=== PATIENT | female | born 1985 ===

== ENCOUNTER 2017-08-20 16:55 | Emergency (ER) | payer OTHER, SELFPAY ==
--- NOTE | 2017-08-20 18:35 | EDM.PDOC ---
ED HPI GENERAL MEDICAL PROBLEM - General Chief Complaint: ROBOTIC TECHNICIAN Problem Stated Complaint: ABDOMINAL PAIN 17 WEEKS Time Seen by Provider: 08/20/17 18:05 Source of Information: Reports: Patient History Limitations: Reports: Language Barrier - History of Present Illness INITIAL COMMENTS - FREE TEXT/NARRATIVE: 32-year-old male presents for evaluation and treatment of abdominal pain. Patient reports that she is expansive abdominal pain throughout her entire abdomen. Started 2 days ago. She reports associated symptoms of nausea, vomiting and chills. Patient denies any vaginal bleeding. No known fevers. No diarrhea. Patient is a 001. Last menstrual period was May 03, approximately 17 weeks . She has been seeing Dr. Alberto ROBOTIC TECHNICIAN for her care. She did see him recently. Patient did not take anything for symptom relief prior to arrival in the ER. Past surgical history includes an appendectomy. Patient primarily speaks Stateless. language barrier is present. Duration: Day(s): (2) Abdomen Pain Score (Numeric/FACES): 7 - Related Data Allergies Allergy/AdvReac Type Severity Reaction Status Date / Time No Known Allergies Allergy Verified 08/20/17 17:39 Home Meds: Home Meds Cephalexin 500 mg PO BID #14 tablet 08/20/17 [Rx] Ondansetron [Zofran ODT] 4 mg PO Q8H PRN #12 tab.dis 08/20/17 [Rx] Pnv No.95/Ferrous Fum/Folic AC [ Multivitamin Tablet] 1 tab PO DAILY [History] Past Medical History ROBOTIC TECHNICIAN History: Reports: - Past Surgical History GI Surgical History: Reports: Appendectomy Social & Family History - Tobacco Use Smoking Status *Q: Never Smoker - Caffeine Use Caffeine Use: Reports: None - Recreational Drug Use Recreational Drug Use: No ED ROS GENERAL - Review of Systems Review Of Systems: See Below Constitutional: Reports: Chills. Denies: Fever GI/Abdominal: Reports: Abdominal Pain, Nausea, Vomiting. Denies: Diarrhea : Reports: Other (no vaginal bleeding). Denies: Dysuria ED EXAM - Physical Exam Exam: See Below Exam Limited By: No Limitations General Appearance: Alert, WD/WN, Mild Distress Eye Exam: Bilateral Eye: EOMI, Normal Inspection, PERRL Ears: Normal External Exam, Normal Canal, Normal TMs Nose: Normal Inspection Throat/Mouth: Normal Inspection, Normal Lips, Normal Oropharynx, Normal Voice, No Airway Compromise Neck: Normal Inspection Respiratory/Chest: No Respiratory Distress, Lungs Clear, Normal Breath Sounds Cardiovascular: Normal Peripheral Pulses, Regular Rate, Rhythm, No Murmur GI/Abdominal Exam: Normal Bowel Sounds, Soft, Non-Tender, Tender (gravid uterus , approximately 17 weeks, heart tones 140s) Heart Tones: Present Heart Tones per Min: 145 Neurological: Alert, Oriented, Normal Cognition Psychiatric: Normal Affect, Normal Mood Skin Exam: Warm, Dry, Normal Color Course - Vital Signs Last Recorded V/S: Last Vital Signs Temp 36.1 C 08/20/17 17:33 Pulse 68 08/20/17 17:33 Resp 20 08/20/17 17:33 BP 111/65 08/20/17 17:33 Pulse Ox 100 08/20/17 17:33 - Orders/Labs/Meds Labs: Laboratory Tests 08/20/17 08/20/17 08/20/17 Range/Units 18:50 18:50 18:54 WBC 6.88 (3.98-10.04) K/mm3 RBC 4.12 (3.98-5.22) M/mm3 Hgb 12.0 (11.2-15.7) gm/L Hct 34.4 (34.1-44.9) % MCV 83.5 (79.4-94.8) fl MCH 29.1 (25.6-32.2) pg MCHC 34.9 (32.2-35.5) g/dl RDW Std Deviation 41.0 (36.4-46.3) fL Plt Count 230 (182-369) K/mm3 MPV 9.8 (9.4-12.3) fl Neutrophils % (Manual) 61 H (40-60) % Band Neutrophils % 2 (0-10) % Lymphocytes % (Manual) 29 (20-40) % Atypical Lymphs % 0 % Monocytes % (Manual) 7 (2-10) % Eosinophils % (Manual) 1 (0.7-5.8) % Basophils % (Manual) 0 L (0.1-1.2) Platelet Estimate Adequate RBC Morph Comment Normal Sodium 139 (136-145) mEq/L Potassium 3.7 (3.5-5.1) mEq/L Chloride 104 (98-107) mEq/L Carbon Dioxide 23 (21-32) mEq/L Anion Gap 15.7 H (5-15) BUN 6 L (7-18) mg/dL Creatinine 0.5 L (0.55-1.02) mg/dL Est Cr Clr Drug Dosing 126.64 mL/min Estimated GFR (MDRD) > 60 (>60) mL/min BUN/Creatinine Ratio 12.0 L (14-18) Glucose 109 H (74-106) mg/dL Calcium 8.7 (8.5-10.1) mg/dL Total Bilirubin 0.3 (0.2-1.0) mg/dL AST 12 L (15-37) U/L ALT 20 (14-59) U/L Alkaline Phosphatase 63 (46-116) U/L Total Protein 7.0 (6.4-8.2) g/dl Albumin 3.1 L (3.4-5.0) g/dl Globulin 3.9 gm/dL Albumin/Globulin Ratio 0.8 L (1-2) Urine Color Light yellow (Yellow) Urine Appearance Clear (Clear) Urine pH 6.5 (5.0-8.0) Ur Specific [place] 1.010 (1.005-1.030) Urine Protein Negative (Negative) Urine Glucose (UA) Negative (Negative) Urine Ketones Negative (Negative) Urine Occult Blood Negative (Negative) Urine Nitrite Negative (Negative) Urine Bilirubin Negative (Negative) Urine Urobilinogen 0.2 (0.2-1.0) Ur Leukocyte Esterase 1+ H (Negative) Urine RBC 0-5 (0-5) /hpf Urine WBC 10-20 H (0-5) /hpf Ur Epithelial Cells 5-10 H (0-5) /hpf Urine Bacteria Few (FEW) /hpf Urine Mucus Not seen (FEW) /hpf Meds: Medications Discontinued Medications Generic Name Dose Route Start Last Admin Trade Name Freq PRN Reason Stop Dose Admin Acetaminophen 650 mg 08/20/17 20:13 08/20/17 20:20 Tylenol PO 08/20/17 20:14 650 mg NOW ONE Administration - Re-Assessments/Exams Free Text/Narrative Re-Assessment/Exam: 08/20/17 20:30 influenza returned negative. reviewed the labs with the patient. Will treat for a UTI. urine sent for culture. Start keflex. Follow-up with OB this week. Discharge instructions as documented. Departure - Departure Time of Disposition: 20:35 Disposition: Home, Self-Care 01 Condition: Fair Clinical Impression: Urinary tract infection - Discharge Information Prescriptions: Cephalexin 500 mg PO BID #14 tablet Ondansetron [Zofran ODT] 4 mg PO Q8H PRN #12 tab.dis PRN Reason: Nausea Instructions: Urinary Tract Infection, Adult Referrals: Josh Alberto MD [Primary Care Provider] - Forms: ED Department Discharge Additional Instructions: [id number] Tylenol as needed for pain. Do not take ibuprofen, Aleve, NSAIDs, etc. while you are . Make sure you're drinking plenty of fluids. Drink about half of your body weight in ounces every day. Zofran 1 tablet sublingual every 8 hours as needed for nausea. Follow-up with Dr. Alberto this week for recheck of your symptoms. Keflex 1 tab twice a day for 7 days. Please return to the ER if your symptoms change or worsen.
[2017-08-20] MEDS ORDERED: Acetaminophen 325 MG Tab PO ONE (20:13)
== END 2017-08-20 21:00 | disposition home or self-care (01) ==
LOC: JD.ED 16:55
DX: O23.42 Unspecified infection of urinary tract in pregnancy, second trimester (principal); Z90.49 Acquired absence of other specified parts of digestive tract; Z3A.17 17 weeks gestation of pregnancy
CPT/HCPCS: 36415; 80053; 81001; 85025; 87086; 87088; 87804; 99284; A9270; 99283